=== PATIENT | male | born 1945 | race Caucasian/White ===

== ENCOUNTER 2016-03-15 12:43 | Inpatient (IN) | payer MEDICARE, OTHER ==
[~2016-03-15] VITALS: Ht 188 cm; Wt 90.0 kg
[~2016-03-15 12:43] MED LIST: ALLO300 PO; AMBI10TA PO; AMLO2.5T PO; ASPI81TA82 PO; ATOR20TA42 PO; CARV6.25 PO; FOLI1TAB PO; LORA-474 PO; LORA10TA7 PO; MOME17I; MONT10TA2 PO; RAMI5CAP7 PO; SOTA80TA PO
[2016-03-15 12:49] VITALS: BP 119/71; PULSE 83; RESP 12; TEMP 98.3; O2SAT 95
--- NOTE | 2016-03-15 13:33 | PD ---
HPI Chief Complaint: Pain: Acute or Chronic Time Seen by Provider: 13:33 Travel History International Travel<30 days: No Contact w/Intl Traveler<30days: No Traveled to known affect area: No History of Present Illness HPI 70-year-old male coming in with sudden onset left leg discomfort and swelling over the past 2 days. Patient has a history of cancer from Agent [place], as well as history of DVT in 2002, treated with Coumadin and heparin at the time. Patient has not been on anticoagulation since being treated for his Agent [place] cancer. Patient is a patient of Dr. Butterfeild, and Dr. Villa. He was seen by Dr. Villa this morning and referred to the emergency department for workup for possible DVT. Patient denies shortness of breath, chest pain, or cough. Patient denies significant pain in the left lower leg but has more pain in the left thigh. He has no weakness appreciated. He has no fever, chills, or other symptoms. There are no open wounds or signs of cellulitis in the left leg. He is allergic to sulfur. PFSH Past Medical History Arthritis: No Asthma: No Heart Rhythm Problems: No Cancer: Yes (NON-HODGKINS LYMPHOMA) Cardiac Catheterization: Yes (2 YRS AGO) Cardiomyopathy: Yes Cardiovascular Problems: Yes (cardiomyopathy) High Cholesterol: Yes Chemotherapy: Yes Chest Pain: No Congestive Heart Failure: No COPD: No Cerebrovascular Accident: No Diabetes: No Diminished Hearing: No GERD: No Genitourinary: No Headaches: No Hepatitis: No Hiatal Hernia: No Hypertension: Yes Kidney Stones: No Musculoskeletal: No Neurologic: No Reproductive: No Respiratory: No Migraines: No Myocardial Infarction: No Renal Failure: No Seizures: No Sleep Apnea: No Ulcer: No Past Surgical History Abdominal Surgery: Yes AICD: No Appendectomy: Yes Body Medical Devices: right port Cardiac Surgery: Yes (cath) Cholecystectomy: Yes Ear Surgery: No Endocrine Surgery: No Eye Surgery: No Genitourinary Surgery: No Gynecologic Surgery: No Joint Replacement: No Oral Surgery: No Pacemaker: No Thoracic Surgery: No Other Surgery: Yes (SPLEENECTOMY) Social History Alcohol Use: No Tobacco Use: No Substance Use: No Allergies-Medications (Allergen,Severity, Reaction): Coded Allergies: Sulfur Colloid (Verified Allergy, Mild, throat closed, 03/15/16) Reported Meds & Prescriptions Reported Meds & Active Scripts Active Reported Cialis (Tadalafil) 2.5 Mg Tab 2.5 Mg PO MOWEFR Take 1 tablet on Mondays,Wednesdays and Fridays Singulair (Montelukast Sodium) 10 Mg Tab 10 Mg PO HS Aspirin Adult Low Strength (Aspirin) 81 Mg Tabdr 81 Mg PO HS Folic Acid 800 Mcg Cap 800 Mcg PO DAILY Zolpidem (Zolpidem Tartrate) 10 Mg Tab 10 Mg PO HS PRN Ativan (Lorazepam) 1 Mg Tab 1 Mg PO HS Nasonex Nasal [place] (Mometasone Furoate) 50 Mcg/Act Naspr 2 [place] EACH NARE HS Amlodipine (Amlodipine Besylate) 5 Mg Tab 2.5 Mg PO HS Clarinex (Desloratadine) 5 Mg Tab 5 Mg PO DAILY Atorvastatin (Atorvastatin Calcium) 40 Mg Tab 40 Mg PO DAILY Allopurinol 300 Mg Tab 300 Mg PO DAILY Ramipril 2.5 Mg Cap 2.5 Mg PO BID Sotalol (Sotalol HCl) 80 Mg Tab 80 Mg PO BID Coreg (Carvedilol) 6.25 Mg Tab 3.125 Mg PO BID Review of Systems Except as stated in HPI: all other systems reviewed are Neg General / Constitutional: No: Fever, Chills Eyes: No: Visual changes HENT: No: Headaches Cardiovascular: No: Chest Pain or Discomfort, Palpitations Respiratory: No: Cough, Shortness of Breath, Wheezing Gastrointestinal: No: Abdominal Pain Genitourinary: No: Dysuria Musculoskeletal: Positive: Edema (see history present illness.), Pain (left leg.), No: Myalgias, Arthralgias, Limited ROM Skin: No Rash Neurologic: No: Weakness Psychiatric: No: Depression Endocrine: No: Polydipsia Hematologic/Lymphatic: No: Easy Bruising Physical Exam Narrative GENERAL: Patient appears in no acute distress. SKIN: Warm and dry. Normal color. Normal turgor. Left leg has 3+ pitting edema to the mid thigh. No signs of increased or decreased warmth, erythema, or cellulitis. HEAD: Atraumatic. Normocephalic. EYES: Pupils equal and round. No scleral icterus. No injection or drainage. ENT: No nasal bleeding or discharge. Mucous membranes pink and moist. NECK: Trachea midline. No JVD. CARDIOVASCULAR: Regular rate and rhythm. No murmurs gallops or rubs appreciated. RESPIRATORY: No accessory muscle use. Clear to auscultation. Breath sounds equal bilaterally. GASTROINTESTINAL: Abdomen soft, non-tender, nondistended. Hepatic and splenic margins not palpable. MUSCULOSKELETAL: Extremities without clubbing, cyanosis, or edema. No obvious deformities. Patient has no significant increased pain with palpation or compression of the left calf. He has a negative Homans sign on the left. Patient does have discomfort with palpation of the left distal medial thigh. NEUROLOGICAL: Awake and alert. No obvious cranial nerve deficits. Motor grossly within normal limits. Five out of 5 muscle strength in the arms and legs. Normal speech. PSYCHIATRIC: Appropriate mood and affect; insight and judgment normal. Data Data Last Documented VS Vital Signs Date Time Temp Pulse Resp B/P Pulse Ox O2 Delivery O2 Flow Rate FiO2 03/15/16 13:35 76 16 131/90 98 Room Air 03/15/16 12:49 98.3 Orders Complete Blood Count With Diff (03/15/16 13:50) Comprehensive Metabolic Panel (03/15/16 13:50) Prothrombin Time / Inr (Pt) (03/15/16 13:50) Act Partial Throm Time (Ptt) (03/15/16 13:50) Iv Access Insert/Monitor (03/15/16 13:50) Ecg Monitoring (03/15/16 13:50) Oximetry (03/15/16 13:50) Sodium Chloride 0.9% Flush (Ns Flush) (03/15/16 14:00) Electrocardiogram (03/15/16 13:50) Chest, Single Ap (03/15/16 13:50) Us Leg Venous Doppler (03/15/16 13:50) Heparin Inj (Heparin Inj) (03/15/16 16:00) Labs Laboratory Tests Test 03/15/16 13:55 White Blood Count 9.9 TH/MM3 Red Blood Count 4.42 MIL/MM3 Hemoglobin 14.2 GM/DL Hematocrit 42.6 % Mean Corpuscular Volume 96.5 FL Mean Corpuscular Hemoglobin 32.2 PG Mean Corpuscular Hemoglobin 33.4 % Concent Red Cell Distribution Width 14.3 % Platelet Count 172 TH/MM3 Mean Platelet Volume 10.5 FL Neutrophils (%) (Auto) 57.4 % Lymphocytes (%) (Auto) 25.5 % Monocytes (%) (Auto) 14.0 % Eosinophils (%) (Auto) 2.3 % Basophils (%) (Auto) 0.8 % Neutrophils # (Auto) 5.7 TH/MM3 Lymphocytes # (Auto) 2.5 TH/MM3 Monocytes # (Auto) 1.4 TH/MM3 Eosinophils # (Auto) 0.2 TH/MM3 Basophils # (Auto) 0.1 TH/MM3 CBC Comment DIFF FINAL Differential Comment Prothrombin Time 10.1 SEC Prothromb Time International 0.9 RATIO Ratio Activated Partial 32.9 SEC Thromboplast Time Sodium Level 140 MEQ/L Potassium Level 4.8 MEQ/L Chloride Level 105 MEQ/L Carbon Dioxide Level 28.7 MEQ/L Anion Gap 6 MEQ/L Blood Urea Nitrogen 18 MG/DL Creatinine 1.14 MG/DL Estimat Glomerular Filtration 64 ML/MIN Rate Random Glucose 90 MG/DL Calcium Level 8.9 MG/DL Total Bilirubin 1.5 MG/DL Aspartate Amino Transf 19 U/L (AST/SGOT) Alanine Aminotransferase 21 U/L (ALT/SGPT) Alkaline Phosphatase 125 U/L Total Protein 6.9 GM/DL Albumin 3.8 GM/DL [facility] Medical Decision Making Medical Screen Exam Complete: Yes Emergency Medical Condition: Yes Differential Diagnosis Left leg edema. Vascular insufficiency. DVT. Narrative Course Patient is felt to be medically stable at time of exam. Labs ordered including CBC, CMP, and PT PTT and INR. EKG and chest x-ray is ordered. Ultrasound left lower extremity is ordered. Chest x-ray is negative per radiologist. EKG shows normal sinus rhythm with old infarction. This was reviewed with Dr. Wood. No acute findings were noted. CBC is unremarkable except for slightly elevated bilirubin at 1.5, alkaline phosphatase is 125. CMP and PT PTT and INR are within normal limits. Ultrasound shows extensive DVT to the left lower extremity. See radiology note. Patient is guaiac negative on rectal exam. Patient discussed with Dr. Wood recommends heparin bolus and drip. These are ordered. Call was placed to the residence for admission. Patient will be admitted under Dr. Worley service. Diagnosis Primary Impression: Left leg DVT Qualified Code: I82.412 - Acute deep vein thrombosis (DVT) of femoral vein of left lower extremity Admitting Information Admitting Physician Requests: Admit Koby Ortega Mar 15, 2016 13:33
[2016-03-15 13:35] VITALS: BP 131/90; PULSE 76; RESP 16; O2SAT 98
[2016-03-15] MEDS ORDERED: SODIUM CHLORIDE 0.9% FLUSH 5 ML FLUSH IVF PRN (14:00)
[2016-03-15 14:03] LABS: AUTOMATED NEUTROPHIL # 5.7 TH/MM3 (1.8-7.7); BASOPHIL # 0.1 TH/MM3 (0-0.2); BASOPHIL % 0.8 % (0.0-2.0); EOSINOPHIL # 0.2 TH/MM3 (0-0.4); EOSINOPHIL % 2.3 % (0.0-4.0); HEMATOCRIT 42.6 % (39.0-51.0); HEMO FLAGS DIFF FINAL; LYMPH % 25.5 % (9.0-44.0); LYMPHOCYTE # 2.5 TH/MM3 (1.0-4.8); MEAN CELL VOLUME 96.5 FL (80.0-100.0); MEAN CORPUSCULAR HEMOGLOBIN 32.2 PG (27.0-34.0); MEAN CORPUSCULAR HGB CONC 33.4 % (32.0-36.0); NEUT % 57.4 % (16.0-70.0); PLATELET COUNT 172 TH/MM3 (150-450); RED BLOOD COUNT 4.42 MIL/MM3 (4.50-5.90); RED CELL DISTRIBUTION WIDTH 14.3 % (11.6-17.2); WHITE BLOOD COUNT 9.9 TH/MM3 (4.0-11.0)
[2016-03-15 14:11] LABS: APTT (PATIENT) 32.9 SEC (24.3-30.1); INTERNATIONAL NORMALIZED RATIO 0.9 RATIO; PROTHROMBIN TIME - PATIENT 10.1 SEC (9.8-11.6)
--- NOTE | 2016-03-15 14:22 | RADRPT ---
EXAM DATE/TIME: 03/15/2016 14:01 [facility] COMPARISON: No previous studies available for comparison. INDICATIONS : Shortness of breath. MEDICAL HISTORY : None. SURGICAL HISTORY : None. ENCOUNTER: Initial ACUITY: 1 day PAIN SCORE: 0/10 LOCATION: Bilateral chest FINDINGS: A single view of the chest demonstrates the lungs to be symmetrically aerated without evidence of mas s, infiltrate or effusion. The cardiomediastinal contours are unremarkable. Osseous structures are intact. CONCLUSION: No acute disease. Neeru Diamond MD on March 15, 2016 at 14:21 Board Certified Radiologist. This report was verified electronically.
[2016-03-15 14:27] LABS: ALKALINE PHOSPHATASE 125 U/L (45-117); TOTAL BILIRUBIN ADULT 1.5 MG/DL (0.2-1.0)
[2016-03-15 14:43] LABS: ALT (GPT) 21 U/L (12-78); ANION GAP 6 MEQ/L (5-15); AST (GOT) 19 U/L (15-37); BICARBONATE 28.7 MEQ/L (21.0-32.0); BLOOD UREA NITROGEN 18 MG/DL (7-18); CHLORIDE 105 MEQ/L (98-107); GLOMERULAR FILTRATION RATE 64 ML/MIN (>89); POTASSIUM 4.8 MEQ/L (3.5-5.1); SODIUM (NA) 140 MEQ/L (136-145)
[2016-03-15] MEDS ORDERED: MONT10TA2 PO (15:29)
[2016-03-15] MEDS ORDERED: ATOR40TA16 PO (15:29)
[2016-03-15] MEDS ORDERED: ALLO300T2 PO (15:29)
[2016-03-15] MEDS ORDERED: CIAL2.5T PO (15:29)
[2016-03-15] MEDS ORDERED: RAMI2.5C PO (15:29)
[2016-03-15] MEDS ORDERED: CLAR5TAB PO (15:29)
[2016-03-15] MEDS ORDERED: CARV6.25 PO (15:29)
[2016-03-15] MEDS ORDERED: ASPI1TAB91 PO (15:29)
[2016-03-15] MEDS ORDERED: LORA-474 PO (15:29)
[2016-03-15] MEDS ORDERED: MOME17I EACH NARE (15:29)
[2016-03-15] MEDS ORDERED: ZOLP10TA3 PO (15:29)
[2016-03-15] MEDS ORDERED: FOLI1CAP7 PO (15:29)
[2016-03-15] MEDS ORDERED: AMLO5TAB2 PO (15:29)
[2016-03-15] MEDS ORDERED: SOTA80TA PO (15:29)
--- NOTE | 2016-03-15 15:38 | RADRPT ---
EXAM DATE/TIME: 03/15/2016 14:53 [facility] COMPARISON: No previous studies available for comparison. INDICATIONS : Left leg swelling. MEDICAL HISTORY : Hypercholesterolemia. Hypertension. Cardiomyopathy. Non-hodgkins lymphoma. SURGICAL HISTORY : Appendectomy. Cholecystectomy. Splenectomy. Cardiac cath. Chemotherapy. Blood transfusion. Port placement. ENCOUNTER: Initial ACUITY: 2 day PAIN SCORE: 5/10 LOCATION: Left leg. TECHNIQUE: Venous ultrasound of the leg was performed from the inguinal ligament to the proximal calf. Real-time, color Doppler and spectral tracing, compression and augmentation techniques were us ed. FINDINGS: This is a significantly abnormal exam. There is extensive clot formation seen throughout the left deep venous system from the inguinal regio n to the proximal calf. Echogenic noncompressible clot is seen in the lumen of the common femoral, fe moral, popliteal, and posterior tibial veins. CONCLUSION: Significantly abnormal exam with extensive clot seen throughout the left lower extrem remay Neeru Diamond MD on March 15, 2016 at 15:31 Board Certified Radiologist. This report was verified electronically.
[2016-03-15 16:00] VITALS: BP 140/87; PULSE 84; RESP 16; O2SAT 97
[2016-03-15] MEDS ORDERED: HEPARIN SODIUM - SQ 10,000 UNITS/ML VIAL SQ ONE (16:00)
[2016-03-15] MEDS ORDERED: HEPARIN-D5W INJ 250 ML IV SCH ×2 (16:15→17:00)
[2016-03-15] MEDS ORDERED: HEPARIN SODIUM - IV 10,000 UNITS/10 ML VIAL IV ONE ×2 (16:15→17:00)
[2016-03-15] MEDS ORDERED: SODIUM CHLORIDE 0.9% FLUSH 5 ML FLUSH FLUSH PRN (16:30)
[2016-03-15] MEDS ORDERED: NALOXONE HCL 0.4 MG/ML AMP IV PRN ×2 (16:30→16:45)
[2016-03-15] MEDS ORDERED: ACETAMINOPHEN 325 MG TAB PO PRN (16:45)
--- NOTE | 2016-03-15 16:48 | HHI.HP ---
[facility] Service Family Medicine Primary Care Physician Hernando Villa M.D. Admission Diagnosis DVT Diagnoses: Chief Complaint: Left leg swelling and soreness International Travel<30 Days: No Contact w/Intl Traveler<30days: No Known Affected Area: No History of Present Illness Patient is a 70-year-old male with a past medical history significant for non- Hodgkin's lymphoma, cardiomyopathy, and recurrent DVTs who presents today for left lower extremity swelling and soreness. Patient states that he first noticed left leg soreness couple days ago. He had recently started taking Cialis and thought it was a side effect of the medication. He also states that he's been working out frequently so he thought it may be a treated that as well. He first noticed swelling in the left lower extremity this morning. He went to see his PCP, Dr. Villa, who sent him here. Patient does have a significant history of DVTs including a left lower extremity DVT in 1964 and a right lower extremity DVT in 2002. He had an IVC filter placed in 2008. Account Manager Relief is Dr. Wick. Otherwise, patient denies any chest pain, shortness of breath, fever, chills, nausea, vomiting, or pain with deep inspiration. He is scheduled to go on a cruise at the beginning of March. 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 Hyperlipidemia Hypertension Past Surgical History Splenectomy Cholecystectomy Reported Medications Reported Meds & Active Scripts Active Reported Cialis (Tadalafil) 2.5 Mg Tab 2.5 Mg PO MOWEFR Take 1 tablet on Mondays,Wednesdays and Fridays Singulair (Montelukast Sodium) 10 Mg Tab 10 Mg PO HS Aspirin Adult Low Strength (Aspirin) 81 Mg Tabdr 81 Mg PO HS Folic Acid 800 Mcg Cap 800 Mcg PO DAILY Zolpidem (Zolpidem Tartrate) 10 Mg Tab 10 Mg PO HS PRN Ativan (Lorazepam) 1 Mg Tab 1 Mg PO HS Nasonex Nasal [place] (Mometasone Furoate) 50 Mcg/Act Naspr 2 [place] EACH NARE HS Amlodipine (Amlodipine Besylate) 5 Mg Tab 2.5 Mg PO HS Clarinex (Desloratadine) 5 Mg Tab 5 Mg PO DAILY Atorvastatin (Atorvastatin Calcium) 40 Mg Tab 40 Mg PO DAILY Allopurinol 300 Mg Tab 300 Mg PO DAILY Ramipril 2.5 Mg Cap 2.5 Mg PO BID Sotalol (Sotalol HCl) 80 Mg Tab 80 Mg PO BID Coreg (Carvedilol) 6.25 Mg Tab 3.125 Mg PO BID (Alyssa Cuba MD R2) Allergies: Coded Allergies: Sulfur Colloid (Verified Allergy, Mild, throat closed, 03/15/16) Active Ordered Medications Current Medications Medications (Trade) Dose Ordered Sig/Audrey Route Start Time Stop Time Status Last Admin (NS Flush) 2 ml UNSCH PRN FLUSH 03/15/16 16:30 (NS Flush) 2 ml BID FLUSH 03/15/16 21:00 (Narcan Inj) 0.4 mg UNSCH PRN IV 03/15/16 16:30 Acetaminophen 650 mg 650 mg Q4H PRN PO 03/15/16 16:45 (Heparin-D5W Inj) 250 ml @ 0 mls/hr TITRATE IV 03/15/16 17:00 Family History Father: Heart disease Mother: Rheumatoid arthritis Social History Drinks 1 glass of red wine per night. No tobacco or illicit drug use. Lives at home with his . 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 (Alyssa Cuba MD R2) Physical Exam Vital Signs Vital Signs Date Time Temp Pulse Resp B/P Pulse Ox O2 Delivery O2 Flow Rate FiO2 03/15/16 16:00 84 16 140/87 97 Room Air 03/15/16 13:35 76 16 131/90 98 Room Air 03/15/16 13:35 79 16 03/15/16 12:49 98.3 83 12 119/71 95 Room Air Physical Exam GENERAL: This is a well-nourished, well-developed male patient, in no apparent distress. SKIN: No rashes, ecchymoses or lesions. Cool and dry. HEAD: Atraumatic. Normocephalic. No temporal or scalp tenderness. EYES: Pupils equal round and reactive. Extraocular motions intact. No scleral icterus. No injection or drainage. ENT: Nose without bleeding, purulent drainage or septal hematoma. Throat without erythema, tonsillar hypertrophy or exudate. Uvula midline. Airway patent. NECK: Trachea midline. No JVD or lymphadenopathy. Supple, nontender, no meningeal signs. CARDIOVASCULAR: Regular rate with occasional PVC's without murmurs, gallops, or rubs. RESPIRATORY: Clear to auscultation. Breath sounds equal bilaterally. No wheezes , rales, or rhonchi. GASTROINTESTINAL: Abdomen soft, non-tender, nondistended. No hepato-splenomegaly , or palpable masses. No guarding. MUSCULOSKELETAL: LLE edematous from ankle to hip. Nontender to palpation. Slightly erythematous compared to RLE. No joint tenderness, effusion, or edema noted. NEUROLOGICAL: Awake and alert. Cranial nerves II through XII intact. Motor and sensory grossly within normal limits. Normal speech. Laboratory Laboratory Tests Test 03/15/16 13:55 White Blood Count 9.9 Red Blood Count 4.42 Hemoglobin 14.2 Hematocrit 42.6 Mean Corpuscular Volume 96.5 Mean Corpuscular Hemoglobin 32.2 Mean Corpuscular Hemoglobin 33.4 Concent Red Cell Distribution Width 14.3 Platelet Count 172 Mean Platelet Volume 10.5 Neutrophils (%) (Auto) 57.4 Lymphocytes (%) (Auto) 25.5 Monocytes (%) (Auto) 14.0 Eosinophils (%) (Auto) 2.3 Basophils (%) (Auto) 0.8 Neutrophils # (Auto) 5.7 Lymphocytes # (Auto) 2.5 Monocytes # (Auto) 1.4 Eosinophils # (Auto) 0.2 Basophils # (Auto) 0.1 CBC Comment DIFF FINAL Differential Comment Prothrombin Time 10.1 Prothromb Time International 0.9 Ratio Activated Partial 32.9 Thromboplast Time Sodium Level 140 Potassium Level 4.8 Chloride Level 105 Carbon Dioxide Level 28.7 Anion Gap 6 Blood Urea Nitrogen 18 Creatinine 1.14 Estimat Glomerular Filtration 64 Rate Random Glucose 90 Calcium Level 8.9 Total Bilirubin 1.5 Aspartate Amino Transf 19 (AST/SGOT) Alanine Aminotransferase 21 (ALT/SGPT) Alkaline Phosphatase 125 Total Protein 6.9 Albumin 3.8 (Alyssa Cuba MD R2) Result Diagram: 03/15/16 1355 03/15/16 1355 Imaging Last Impressions Lower Extremity Ultrasound 03/15/16 1350 Signed Impressions: Service Date/Time: February 14:53 - CONCLUSION: Significantly abnormal exam with extensive clot seen throughout the left lower extremity Neeru Diamond MD Chest X-Ray 03/15/16 1350 Signed Impressions: Service Date/Time: February 14:01 - CONCLUSION: No acute disease. Neeru Diamond MD (Alyssa Cuba MD R2) Assessment and Plan Assessment and Plan Patient is a 70-year-old male with a past medical history significant for non- Hodgkin's lymphoma, cardiomyopathy, and recurrent DVTs who presents today for left lower extremity swelling and soreness and is admitted for extensive LLE DVT. Code Status Full Code Discussed Condition With dw Dr. Yin and Dr. Singh (Alyssa Cuba MD R2) Attending Attestation THIS CASE WAS DISCUSSED WITH THE RESIDENT PHYSICIANS. I HAVE REVIEWED THE RECORD AND AGREE WITH THE ABOVE NOTE AND PLAN OF CARE WAS DISCUSSED. I HAVE AUTHORIZED THE ORDER FOR ADMISSION TO AN IN-PATIENT STATUS. (Braeden Yin MD) Problem List: (1) Left leg DVT Status: Acute Plan: Hx of recurrent DVT's Hx of B cell lymphoma Lower extremity ultrasound significant for extensive clot seen throughout the left lower extremity Plan: - Heparin drip - Case discussed with IR who does not feel patient is a candidate for IR clot busting given his history and age - Consult king maker, Dr. Wick for further recommendations given his familiarity with patient's history/past work-up. Will discuss initiation of Coumadin versus Xarelto. (2) HTN (hypertension) Status: Chronic Plan: Continue home dose of ramipril 2.5mg PO BID, Sotalol 80mg PO BID (3) HLD (hyperlipidemia) Status: Chronic Plan: Continue home dose of Atorvastatin 40mg PO daily (4) History of B-cell lymphoma Status: Chronic Plan: Follows with Dr. Wick who is consulted on the case. (5) Nutrition, metabolism, and development symptoms Status: Acute Plan: Fluids: None necessary, tolerating PO Electrolytes: wnl, continue to monitor and replete as needed Nutrition: Heart healthy diet DVT PPx: On heparin drip (Alyssa Cuba MD R2) Physician Certification 2 Midnight Certification Type: Admission for Inpatient Services Order for Inpatient Services The services are ordered in accordance with Medicare regulations or non- Medicare payer requirements, as applicable. In the case of services not specified as inpatient-only, they are appropriately provided as inpatient services in accordance with the 2-midnight benchmark. Estimated LOS (days): 2 days is the estimated time the patient will need to remain in the hospital, assuming treatment plan goals are met and no additional complications. Post-Hospital Plan: Home (Alyssa Cuba MD R2) Problem Qualifiers (1) Left leg DVT: Qualified Code: I82.412 - Acute deep vein thrombosis (DVT) of femoral vein of left lower extremity (2) HTN (hypertension): Qualified Code: I10 - Essential hypertension (3) HLD (hyperlipidemia): Qualified Code: E78.5 - Hyperlipidemia, unspecified hyperlipidemia type Alyssa Cuba MD R2 Mar 15, 2016 16:48 Braeden Yin MD Mar 16, 2016 11:30
[2016-03-15] MEDS ORDERED: PILL SPLITTER OTHER PRN (17:45)
[2016-03-15] MEDS ORDERED: ZOLPIDEM TARTRATE 10 MG TAB PO PRN (17:45)
[2016-03-15 18:00] VITALS: BP 123/73; PULSE 78; RESP 16; O2SAT 97
[2016-03-15] MEDS ORDERED: amLODIPine BESYLATE 5 MG TAB PO SCH (21:00)
[2016-03-15] MEDS ORDERED: MONTELUKAST SODIUM 10 MG TAB PO SCH (21:00)
[2016-03-15] MEDS ORDERED: FLUTICASONE PROPIONATE 50 MCG/ACT 16 GM NASAL SPRAY EACH NARE SCH (21:00)
[2016-03-15] MEDS ORDERED: LORazepam 1 MG TAB PO SCH (21:00)
[2016-03-15] MEDS ORDERED: ASPIRIN EC 81 MG TABEC PO SCH (21:00)
[2016-03-15 21:30] VITALS: BP 133/86; PULSE 81; RESP 18; O2SAT 97
[2016-03-15] MEDS: CARVEDILOL 3.125 MG TAB PO SCH (21:38)
[2016-03-15] MEDS: SODIUM CHLORIDE 0.9% FLUSH 5 ML FLUSH FLUSH SCH (23:30)
[2016-03-15] MEDS: RAMIPRIL 2.5 MG CAP PO SCH (23:32)
[2016-03-15] MEDS: SOTALOL HCL 80 MG TAB PO SCH (23:33)
[2016-03-15 23:46] VITALS: BP 117/75; PULSE 64; RESP 20; TEMP 97.4; O2SAT 95
[2016-03-16 02:46] LABS: APTT (PATIENT) 97.9 SEC (24.3-30.1)
[2016-03-16 03:49] VITALS: BP 99/65; PULSE 75; RESP 18; TEMP 97.3; O2SAT 93
[2016-03-16 05:11] LABS: AUTOMATED NEUTROPHIL # 6.1 TH/MM3 (1.8-7.7); BASOPHIL # 0.1 TH/MM3 (0-0.2); BASOPHIL % 0.9 % (0.0-2.0); EOSINOPHIL # 0.3 TH/MM3 (0-0.4); EOSINOPHIL % 2.6 % (0.0-4.0); HEMATOCRIT 39.7 % (39.0-51.0); HEMO FLAGS DIFF FINAL; LYMPH % 31.4 % (9.0-44.0); LYMPHOCYTE # 3.7 TH/MM3 (1.0-4.8); MEAN CELL VOLUME 95.7 FL (80.0-100.0); MEAN CORPUSCULAR HEMOGLOBIN 32.3 PG (27.0-34.0); MEAN CORPUSCULAR HGB CONC 33.8 % (32.0-36.0); MONO % 12.1 % (0.0-8.0); PLATELET COUNT 149 TH/MM3 (150-450); RED BLOOD COUNT 4.15 MIL/MM3 (4.50-5.90); RED CELL DISTRIBUTION WIDTH 14.3 % (11.6-17.2); WHITE BLOOD COUNT 11.6 TH/MM3 (4.0-11.0)
[2016-03-16 05:37] LABS: BICARBONATE 25.3 MEQ/L (21.0-32.0); POTASSIUM 4.1 MEQ/L (3.5-5.1)
[2016-03-16] MEDS ORDERED: ALLOPURINOL 300 MG TAB PO SCH (09:00)
[2016-03-16] MEDS ORDERED: ATORVASTATIN 40 MG TAB PO SCH (09:00)
[2016-03-16] MEDS ORDERED: LORATADINE 10 MG TAB PO SCH (09:00)
[2016-03-16] MEDS ORDERED: FOLIC ACID 1 MG TAB PO SCH (09:00)
[2016-03-16 09:28] VITALS: BP 111/71; PULSE 44; PULSE 86; RESP 14; O2SAT 96
[2016-03-16] MEDS: CARVEDILOL 3.125 MG TAB PO SCH (09:35)
[2016-03-16] MEDS: SOTALOL HCL 80 MG TAB PO SCH (09:43)
[2016-03-16] MEDS: SODIUM CHLORIDE 0.9% FLUSH 5 ML FLUSH FLUSH SCH (10:18)
[2016-03-16] MEDS: RAMIPRIL 2.5 MG CAP PO SCH (10:18)
--- NOTE | 2016-03-16 10:21 | HHI.FPPN ---
Subjective Remarks FM Attending Note: Patient seen and examined. S: Chart and all resident physician notes reviewed. In summary this is a 70 year old male who was admitted with an admission diagnosis of DVT. This patient has a s/o VTE documented well by Dr. Cuba. Previously was treated successfully with warfarin, but warfarin therapy was stopped when he underwent treatment for non-Hodgkins lymphoma a few years ago. His IVC filter was placed at the time he underwent a splenectomy due to splenomegaly. He is planning on a 1 month vacation ([employer]) that will start in about 1 week if his health allows. He was seen earlier this AM by his oncologist who is recommending treatment with a novel agent with f/u in his office. Objective Vitals Vital Signs Date Time Temp Pulse Resp B/P Pulse Ox O2 Delivery O2 Flow Rate FiO2 03/16/16 09:28 86 14 111/71 96 03/16/16 03:49 97.3 75 18 99/65 93 03/15/16 23:46 97.4 64 20 117/75 95 03/15/16 21:30 81 18 133/86 97 Room Air 03/15/16 18:00 78 16 123/73 97 Room Air 03/15/16 16:00 84 16 140/87 97 Room Air 03/15/16 13:35 76 16 131/90 98 Room Air 03/15/16 13:35 79 16 03/15/16 12:49 98.3 83 12 119/71 95 Room Air I/O 03/15/16 03/15/16 03/15/16 03/16/16 03/16/16 03/16/16 07:00 15:00 23:00 07:00 15:00 23:00 Intake Total 300 ml Output Total 500 ml Balance -200 ml Intake Oral 300 ml Output Urine Total 500 ml Result Diagram: 03/16/16 0415 03/16/16 0415 Other Results Item Value Date Time Total Bilirubin 1.5 MG/DL H 03/15/16 1355 Aspartate Amino Transf (AST/SGOT) 19 U/L 03/15/16 1355 Alanine Aminotransferase (ALT/SGPT) 21 U/L 03/15/16 1355 Alkaline Phosphatase 125 U/L H 03/15/16 1355 Total Protein 6.9 GM/DL 03/15/16 1355 Albumin 3.8 GM/DL 03/15/16 1355 Imaging Last 48 hours Impressions Lower Extremity Ultrasound 03/15/16 1350 Signed Impressions: Service Date/Time: February 14:53 - CONCLUSION: Significantly abnormal exam with extensive clot seen throughout the left lower extremity Neeru Diamond MD Chest X-Ray 03/15/16 1350 Signed Impressions: Service Date/Time: February 14:01 - CONCLUSION: No acute disease. Neeru Diamond MD Objective Remarks O. CONSTITUTIONAL/GEN: normally nourished, in NAD. EYES: conjunctiva normal, PERRLA, EOMI. LUNGS: clear A-P, respiratory effort is normal. CARDIOVASCULAR: RR without murmur or gallop. Left lower leg swollen with mild tenderness in the posterior calf area. GI/ABD: soft without masses, without organomegaly. NEURO: No focal deficits. Gait is normal SKIN: color normal, no rashes noted. HEME/LYMPH: no bruising, petechia or significant adenopathy MUSC: back is normal in appearance. Extremities are normal in appearance other than swelling of left leg. PSYCH/MENTAL STATUS: Alert and oriented x 3. A/P Assessment and Plan Patient is a 70-year-old male with a past medical history significant for non- Hodgkin's lymphoma, cardiomyopathy, and recurrent DVTs who presents today for left lower extremity swelling and soreness and is admitted for extensive LLE DVT. Problem List: (1) Left leg DVT Status: Acute Plan: Hx of recurrent DVT's Hx of B cell lymphoma Lower extremity ultrasound significant for extensive clot seen throughout the left lower extremity Plan: - Heparin drip - Case discussed with IR who does not feel patient is a candidate for IR clot busting given his history and age - Consult computer security manager, Dr. Wick for further recommendations given his familiarity with patient's history/past work-up. Will discuss initiation of Coumadin versus Xarelto. 03/06/16 Will check with oncology regarding their recommendations for anticoagulation. (2) HTN (hypertension) Status: Chronic Plan: Continue home dose of ramipril 2.5mg PO BID, Sotalol 80mg PO BID (3) HLD (hyperlipidemia) Status: Chronic Plan: Continue home dose of Atorvastatin 40mg PO daily (4) History of B-cell lymphoma Status: Chronic Plan: Follows with Dr. Wick who is consulted on the case. (5) Nutrition, metabolism, and development symptoms Status: Acute Plan: Fluids: None necessary, tolerating PO Electrolytes: wnl, continue to monitor and replete as needed Nutrition: Heart healthy diet DVT PPx: On heparin drip Problem Qualifiers (1) Left leg DVT: Qualified Code: I82.412 - Acute deep vein thrombosis (DVT) of femoral vein of left lower extremity (2) HTN (hypertension): Qualified Code: I10 - Essential hypertension (3) HLD (hyperlipidemia): Qualified Code: E78.5 - Hyperlipidemia, unspecified hyperlipidemia type Braeden Yin MD Mar 16, 2016 10:20
[2016-03-16 11:17] LABS: APTT (PATIENT) 59.2 SEC (24.3-30.1)
[2016-03-16] MEDS ORDERED: DABIGATRAN ETEXILATE 150 MG CAP PO SCH (12:00)
[2016-03-16 12:16] VITALS: BP 119/65; PULSE 79; RESP 20; O2SAT 96
[2016-03-16] MEDS ORDERED: PRAD150C PO (14:13)
--- NOTE | 2016-03-16 14:17 | HHI.FPPN ---
Subjective Remarks Overnight, EILEEN. AFVSS. Eating, voiding, without difficulty. Pt reports LLE still swollen, but no other complaints. Denies fevers/chills, n/v , SOB/CP. Would like to go on cruise planned Mar 23, plans to follow up with outpt heme onc, Dr. Wick, upon return (Cintia Singh MD R1) Objective Vitals Vital Signs Date Time Temp Pulse Resp B/P Pulse Ox O2 Delivery O2 Flow Rate FiO2 03/16/16 12:16 79 20 119/65 96 03/16/16 09:28 86 14 111/71 96 03/16/16 03:49 97.3 75 18 99/65 93 03/15/16 23:46 97.4 64 20 117/75 95 03/15/16 21:30 81 18 133/86 97 Room Air 03/15/16 18:00 78 16 123/73 97 Room Air 03/15/16 16:00 84 16 140/87 97 Room Air I/O 03/15/16 03/15/16 03/15/16 03/16/16 03/16/16 03/16/16 07:00 15:00 23:00 07:00 15:00 23:00 Intake Total 300 ml Output Total 500 ml Balance -200 ml Intake Oral 300 ml Output Urine Total 500 ml (Cintia Singh MD R1) Result Diagram: 03/16/16 0415 03/16/16 0415 Imaging Last Impressions Lower Extremity Ultrasound 03/15/16 1350 Signed Impressions: Service Date/Time: February 14:53 - CONCLUSION: Significantly abnormal exam with extensive clot seen throughout the left lower extremity Neeru Diamond MD Chest X-Ray 03/15/16 1350 Signed Impressions: Service Date/Time: February 14:01 - CONCLUSION: No acute disease. Neeru Diamond MD Objective Remarks O. CONSTITUTIONAL/GEN: normally nourished, in NAD. EYES: conjunctiva normal, PERRLA, EOMI. LUNGS: clear A-P, respiratory effort is normal. CARDIOVASCULAR: RR without murmur or gallop. Left lower leg swollen from knee to toes. No tenderness to posterior calf. GI/ABD: soft without masses, without organomegaly. NEURO: No focal deficits. Gait is normal SKIN: color normal, no rashes noted. HEME/LYMPH: no bruising, petechia or significant adenopathy MUSC: back is normal in appearance. Extremities are normal in appearance other than swelling of left leg. PSYCH/MENTAL STATUS: Alert and oriented x 3. (Cintia Singh MD R1) Urinary Catheter: No (Cintia Singh MD R1) Vascular Central Line Catheter: No (Cintia Singh MD R1) A/P Assessment and Plan Patient is a 70-year-old male with a past medical history significant for non- Hodgkin's lymphoma, cardiomyopathy, and recurrent DVTs who presents today for left lower extremity swelling and soreness and is admitted for extensive LLE DVT. Discharge Planning Today, pending choice of outpatient anticoagulant SDW: Dr. Yin, Dr. Marin, Dr. Camacho, Dr Sheehan (Cintia Singh MD R1) Attending Attestation Patient seen and examined. Case reviewed and discussed with the resident team. Agree with plan of care as discussed with me and documented in the resident note. (Braeden Yin MD) Problem List: (1) Left leg DVT Status: Acute Plan: Risk factors: hx of recurrent DVT's, Hx of B cell lymphoma. LE U/S: extensive clot seen throughout the left lower extremity * Discontinued Heparin drip * Case was discussed with IR who does not feel patient is a candidate for IR clot busting given his history and age * Consult supervisor fireworks assembly, Dr. Wick for further recommendations given his familiarity with patient's history/past work-up. Recommended discharge with Pradaxa (2) HTN (hypertension) Status: Chronic Plan: * Continue homeramipril 2.5mg PO BID, Sotalol 80mg PO BID (3) HLD (hyperlipidemia) Status: Chronic Plan: * Continue home dose of Atorvastatin 40mg PO daily (4) History of B-cell lymphoma Status: Chronic Plan: Follows with Dr. Wick who is consulted on the case. (5) Nutrition, metabolism, and development symptoms Status: Acute Plan: * Fluids: Per PO * Electrolytes: wnl, continue to monitor and replete as needed * Nutrition: Heart healthy diet * DVT PPx: SCDs * GI ppx: not indicated * OOB ad radha (Cintia Singh MD R1) Problem Qualifiers (1) Left leg DVT: Qualified Code: I82.412 - Acute deep vein thrombosis (DVT) of femoral vein of left lower extremity (2) HTN (hypertension): Qualified Code: I10 - Essential hypertension (3) HLD (hyperlipidemia): Qualified Code: E78.5 - Hyperlipidemia, unspecified hyperlipidemia type Cintia Singh MD R1 Mar 16, 2016 14:17 Braeden Yin MD Mar 18, 2016 13:02
--- NOTE | 2016-03-16 15:15 | HHI.DCPOC ---
Discharge Care Plan Diagnosis: (1) Left leg DVT (2) HTN (hypertension) (3) HLD (hyperlipidemia) (4) History of B-cell lymphoma Goals to Promote Your Health * To prevent worsening of your condition and complications * To maintain your health at the optimal level Directions to Meet Your Goals Take your medications as prescribed Follow your dietary instruction Follow activity as directed Keep your appointments as scheduled Take your immunizations and boosters as scheduled If your symptoms worsen call your PCP, if no PCP go to Urgent Care Center or Emergency Room Smoking is Dangerous to Your Health. Avoid second hand smoke Call the 24-hour hour crisis hotline for domestic abuse at Cintia Singh MD R1 Mar 16, 2016 15:15
--- NOTE | 2016-03-16 16:44 | EKG ---
Date Performed: 03/15/2016 Time Performed: 14:04:31 PTAGE: 70 years EKG: Sinus rhythm WITH OCCASIONAL SUPRAVENTRICULAR PREMATURE COMPLEXES INFERIOR MYOCARDIAL INFARCTION ABNORMAL ECG PREVIOUS TRACING : 03/15/2016 14.03 Compared to prior tracing no significant change DOCTOR: Garo Kelly Interpretating Date/Time 03/16/2016 16:42:36
[2016-03-16] MEDS ORDERED: TADALAFIL 2.5 MG PO SCH (17:45)
--- NOTE | 2016-03-17 09:20 | MB ---
cc: IVY CHEUNG M.D. DATE OF CONSULTATION: 03/16/2016 REASON FOR CONSULTATION Hematology is consulted to render an opinion regarding patient with recurrent deep venous thrombosis. HISTORY OF PRESENT ILLNESS The patient is a very pleasant 70-year-old male with a history of diffuse large B-cell lymphoma as well as recurrent deep venous thrombosis, who presented to the hospital with increased left lower extremity swelling and tenderness for about two days. He stated he was in his usual state of health and has been very active. Two days ago he noticed some soreness in the left lower extremity. Initially he thought it was because of Cialis that he just started taking. He denies any trauma to the leg. Yesterday he noted that the left lower extremity was bigger than the right lower extremity. He went to see his primary doctor and was referred to the emergency room. Ultrasound showed left lower extremity deep venous thrombosis and he was started on heparin. He denies any fever, chills, night sweats. Denies chest pain or palpitations. Denies any shortness of breath or cough. Denies nausea, vomiting, diarrhea or abdominal pain. Denies melena or hematochezia. Denies dysuria or hematuria. PAST MEDICAL HISTORY 1. Diffuse large B-cell lymphoma. 2. Cardiomyopathy. 3. Left lower extremity deep venous thrombosis in 1964 after trauma. 4. Right lower extremity deep venous thrombosis in 2002, which was unprovoked. 5. Hypertension. 6. Hyperlipidemia. 7. Autoimmune hemolytic anemia. PAST SURGICAL HISTORY 1. IVC filter placement in 2008. 2. Splenectomy 2007. 3. Cholecystectomy. 4. Cardiac catheterization. 5. Port placement and removal. FAMILY HISTORY Father had deep venous thrombosis. 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 Denies any tobacco use. He drinks one wine a day. ALLERGIES SULFA COLLOID. MEDICATIONS Current medications: 1. Allopurinol. 2. Lipitor. 3. Folate. 4. Claritin. 5. Amlodipine. 6. Aspirin. 7. Coreg. 8. Ativan. 9. Flonase. 10.Singulair. 11.Ramipril. 12.Sotalol. 13.Ambien p.r.n. REVIEW OF SYSTEMS CONSTITUTIONAL: Negative. EYES: Negative. ENT: Negative. CARDIOVASCULAR: Denies chest pain or palpitations. RESPIRATORY: Denies shortness of breath or cough. GI: Denies nausea, vomiting, diarrhea or abdominal pain. : Denies dysuria or hematuria. MUSCULOSKELETAL: Denies any significant pain. HEMATOLOGIC: As above. ENDOCRINE: Negative. DERMATOLOGIC: Negative. PSYCHIATRIC: Negative. NEUROLOGIC: Negative. PHYSICAL EXAMINATION VITAL SIGNS: Temperature 97.3, blood pressure 99/65, O2 saturation 95% on room air. GENERAL: He is alert and oriented x3 in no acute distress. HEENT: Atraumatic, normocephalic. Pupils equal, round and reactive to light. Extraocular muscles intact. No scleral icterus. Oropharynx moist mucosa, no lesion, no thrush, no mucositis. NECK: No thyromegaly. No palpable mass. LYMPHATIC: No palpable cervical, clavicular, axillary or inguinal lymph nodes. CARDIOVASCULAR: Regular S1, S2. No murmur. LUNGS: Clear to auscultation bilaterally without wheezing or rhonchi. ABDOMEN: Soft, nontender. Positive bowel sounds. No hepatosplenomegaly. EXTREMITIES: Left lower extremity is bigger than the right lower extremity. It is a little tender. SKIN: No rash or petechiae. NEUROLOGIC: Nonfocal. LABORATORY DATA Laboratory data reviewed. ASSESSMENT 1. Recurrent left lower extremity deep venous thrombosis. He had a left lower extremity deep venous thrombosis in 1964 after trauma. He also developed right lower extremity venous thrombosis in 2002 which appeared to be unprovoked. He was started on Coumadin at that time. He later was diagnosed with lymphoma and receiving treatment. In 2008 his Coumadin was stopped and an IVC filter was placed. He now developed left lower extremity deep venous thrombosis which appeared to be unprovoked. Ultrasound showed thrombosis of common femoral, femoral, popliteal and posterior tibial vein. Clinically he has no pulmonary symptoms and no evidence of pulmonary embolism. He was started on heparin and his lower extremity tenderness has already improved. He is going to go on a cruise next week and he would like to go home as soon as possible. I had an extensive discussion with him regarding choice of anticoagulation. We talked about Coumadin versus the new agents. We also talked about the availability of antidote with Pradaxa. After some discussion he wants to try Pradaxa. I will start him on Pradaxa and have him follow-up in clinic. His questions were answered. 2. History of diffuse large B-cell lymphoma treated with chemotherapy in April 2009. 3. Cardiomyopathy. He has no symptoms. 4. History of autoimmune hemolytic anemia. He has no symptoms or hemolysis at this time. RECOMMENDATIONS 1. Extensive discussion with the patient as above. 2. I will switch him to Pradaxa. 3. He can be discharged from a hematology standpoint and follow-up in the clinic. Thank you Dr. Yin for asking me to see this patient. MD JS Ring/DAV /5:52 PM /9:00 AM ADAM
== END 2016-03-16 17:05 | disposition home or self-care (01) | DRG 300 ==
LOC: NEPC 12:43 → NEDA 16:13 → NEDH 20:13 → NEPFCDU 22:57
PROVIDERS: ADMIT Family Medicine; ATTEND Family Medicine
DX: I82.412 Acute embolism and thrombosis of left femoral vein (principal); C85.90 Non-Hodgkin lymphoma, unspecified, unspecified site; I42.9 Cardiomyopathy, unspecified; D59.1 Other autoimmune hemolytic anemias; E78.5 Hyperlipidemia, unspecified; I10 Essential (primary) hypertension; Z90.81 Acquired absence of spleen; Z92.21 Personal history of antineoplastic chemotherapy
CPT/HCPCS: 71010; 80048; 80053; 85025; 85610; 85730; 93005; 93971; 99285; J1644